=== PATIENT | female | born 1955 | race Caucasian/White ===

== ENCOUNTER 2019-02-03 06:44 | Day surgery (SDC) | payer MEDICARE, OTHER ==
[~2019-02-03 06:44] MED LIST: CEFAZOLIN 2 Gram 2 GM/50 ML BAG IVPB ONE; CELECOXIB 100 MG CAPSULE PO ONE; FAMOTIDINE 20MG TABLET PO ONE; METOCLOPRAMIDE 10 MG TABLET PO ONE; SCOPOLAMINE 1 PATCH TDSY TD ONE; VANCOMYCIN 1GM/200ML PREMIX 1 GM/200 ML PIGGYBACK IVPB ONE
[2019-02-03] MEDS ORDERED: BUPIVACAINE LIPOSOME 266MG/20ML VIAL IV ONE (06:45)
[2019-02-03] MEDS ORDERED: VANCOMYCIN HCL 1 GM VIAL IVPB ONE (06:45)
[2019-02-03] MEDS ORDERED: 0.9 % SODIUM CHLORIDE 100ML 100 ML IV ONE (06:45)
[2019-02-03] MEDS ORDERED: TRANEXAMIC ACID 1,000 MG/10 ML ML IV ONE ×2 (06:45)
[2019-02-03] MEDS ORDERED: LIDOCAINE 2% MDV (20MG/ML) 20ML VIAL IV ONE (06:45)
[2019-02-03] MEDS ORDERED: DEXAMETHASONE 4 MG/ML 1ML VIAL IVP ONE (06:45)
[2019-02-03] MEDS ORDERED: ROPIVACAINE HCL (NAROPIN) /PF 5MG/ML 20ML VIAL IV ONE (06:45)
[2019-02-03] MEDS ORDERED: GLYCOPYRROLATE 0.2 MG/ML ML IV ONE (06:45)
[2019-02-03] MEDS ORDERED: MIDAZOLAM HCL 2MG/2ML VIAL IV ONE (06:45)
[2019-02-03] MEDS ORDERED: PROPOFOL 10 MG/ML VIAL IV ONE (06:45)
[2019-02-03] MEDS ORDERED: RINGERS SOLUTION,LACTATED 1,000 ML IV ONE ×2 (07:30→09:30)
[2019-02-03 07:51] LABS: ABO GROUP A; ANTIBODY SCREEN NEGATIVE (NEGATIVE); RH TYPE POSITIVE
[2019-02-03] MEDS ORDERED: BUPIVACAINE 0.5% W/EPI MPF 30 ML VIAL SQ ONE (10:08)
[2019-02-03] MEDS ORDERED: ACETAMINOPHEN W/ CODEINE 300MG/60MG TABLET PO PRN ×2 (11:12)
[2019-02-03] MEDS ORDERED: BISACODYL 10 MG SUPP RC PRN (11:12)
[2019-02-03] MEDS ORDERED: MAGNESIUM HYDROXIDE 30 ML UDC PO PRN (11:12)
[2019-02-03] MEDS ORDERED: ONDANSETRON HCL IV 4 MG/2 ML VIAL IVP PRN (11:12)
[2019-02-03] MEDS ORDERED: AL HYDROX/MAG HYDROX 30ML UD PO PRN (11:12)
[2019-02-03] MEDS ORDERED: TRAMADOL HCL 50 MG TABLET PO PRN (11:12)
[2019-02-03] MEDS ORDERED: DIPHENHYDRAMINE HCL 25 MG CAPSULE PO PRN (11:12)
[2019-02-03] MEDS ORDERED: NALOXONE 0.4 MG/1 ML VIAL IVP PRN (11:12)
[2019-02-03] MEDS ORDERED: KETOROLAC 30 MG/ML VIAL IVP PRN ×2 (11:12)
[2019-02-03] MEDS ORDERED: ZOLPIDEM TARTRATE 5 MG TABLET PO PRN (11:12)
[2019-02-03] MEDS ORDERED: ACETAMINOPHEN 325 MG TAB PO PRN (11:12)
[2019-02-03] MEDS ORDERED: HYDROMORPHONE HCL 2 MG/ML VIAL IM PRN (11:12)
[2019-02-03] MEDS ORDERED: TRAZODONE 50 MG TABLET PO PRN ×2 (12:28)
[2019-02-03] MEDS: HYDROCODONE/APAP 10/325 TABLET PO PRN ×3 (12:48→22:03)
--- NOTE | 2019-02-03 14:36 | Rehab Evaluation ---
Patient Information - Patient Information Diagnosis: L knee OA Ordered Treatment: PT Evaluate and Treat Status: Initial Evaluation Surgery: Yes (L knee TKA) Date of Surgery: 02/03/19 Past Medical/Surgical Hx: PAST MEDICAL/SURGICAL HISTORY Past Surgical History RTKA 2010 LUMBAR SX FUSION -2018 C SECTION BILAT SHOULDER SX'S KNEE SCOPES C SCOPES ORIF RIGHT ANKLE PMH - Respiratory Hx Respiratory Disorders Yes Hx Bronchitis Yes: NOTHING RECENT PMH - Cardiovascular Hx Cardiovascular Disorders Yes Hx Heart Murmur Yes: FUNCTIONAL NO ISSUES Exercise Tolerance Fair Comment: D/T BACK AND KNEE PMH - Neuro Hx Neurological Disorders Yes Hx Dizziness Yes: VERTIGO IN THE PAST PMH - GI Hx Gastrointestinal Disorders Yes Hx Gastroesophageal Reflux Yes: RARELY Comment: CHRONIC CONSTIPATION PMH - Hx Genitourinary Disorders Yes Hx Urinary Tract Infection Yes: HX OF PMH - Endocrine Hx Endocrine Disorders No PMH - Musculoskeletal Hx Musculoskeletal Disorders Yes Hx Arthritis Yes: LEFT KNEE, HANDS Hx Osteoporosis Yes: OSTEOPENIA PMH - Psych Hx Psychiatric Problems Yes Hx Anxiety Yes: CONTROLLED WITH MEDS PMH - Hematology/Oncology Hx Hematology/Oncology Yes Disorders Hx Cancer Yes: 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 The paient will not be using the second story immediately. The bathroom is equipped with a walk in shower with a seat, standard toilet. No grab bars are present in the bathroom. The patient has a front wheeled walker and a standard cane.) Precautions: [place], Fall, Other (WBAT on the L LE.) - Time With Patient Total Time Spent With Patient (Min): 30 Treatment Procedures: Detail (Initial Evaluation, gait training) Subjective Information - Subjective Information Per Patient (The patient had minimal complaints of knee pain but did complain of bladder pressure.) Objective Data - Mental Status Patient Orientation: Oriented x3 - Visual Perception Appears within normal limits for therapeutic activities - ROM Not within normal limits (The paient's L knee AROM was limited as to be expected s/p surgery. All other LE AROM was WFL.) - Strength/Tone Not within normal limits (The patient's R LE strength was not tested s/p surgery however was WFL ie: patient was able to complete a SLR. The patient's L LE strength was WFL.) - Bed Mobility Independent (The patient was independent with supine to and from sit transfer and scooting up in bed.) - Transfers Independent (The patient was independent with sit to amd from stand transfer.) - Balance Balance Sitting: Good Balance Standing: Good - Gait Detail (The patient ambulated with a front wheeled walker 7 feet x 1 and 65 feet x 1 WBAT on the L LE with CG/supervision for safety.) Therapy Assessment - Therapy Assessment Detail (The patient was independent with bed mobility and transfers and required supervision for safety only with ambulation. Feel the patient will progress well with mobility.) Problem List - Problem List Physical Therapy Problem List: Detail (Decreased L LE strength and L knee AROM) Goals - Goals Physical Therapy Goals: 1) The paient will be indpendent with TKA HEP. 2) The patient will ambulate on stairs with supervison for safety using proper technique. 3) The patient will ambulate with appropriate assistive device WBAT on the L LE household distances independently. Prognosis - Prognosis Good Plan - Plan Physical Therapy Plan: PT 1-2 sessions for gait training on levels and stairs and instruction in HEP.
[2019-02-03] MEDS: POTASSIUM CHLORIDE/D5-0.9%NACL 20 MEQ/1,000 ML BAG IV SCH ×2 (15:06→22:11)
[2019-02-03] MEDS: CEFAZOLIN 2 Gram 2 GM/50 ML BAG IVPB SCH (17:11)
[2019-02-03] MEDS: DOCUSATE SODIUM 100 MG CAPSULE PO SCH (21:10)
[2019-02-04] MEDS: CEFAZOLIN 2 Gram 2 GM/50 ML BAG IVPB SCH ×2 (00:04→10:06)
[2019-02-04] MEDS: HYDROCODONE/APAP 10/325 TABLET PO PRN ×2 (05:01→10:05)
[2019-02-04] MEDS: POTASSIUM CHLORIDE/D5-0.9%NACL 20 MEQ/1,000 ML BAG IV SCH ×2 (05:08→11:14)
[2019-02-04 06:30] LABS: HEMATOCRIT 33.3 % (35.0-47.0); HEMOGLOBIN 10.5 gm/dl (11.6-16.0)
[2019-02-04 06:43] LABS: BLOOD UREA NITROGEN 10 mg/dL (8-23); CREATININE 0.7 mg/dL (0.5-0.9); EST GLOMERULAR FILTRATION RATE > 60 mL/min; GLUCOSE,RANDOM 120 mg/dL (74-109)
--- NOTE | 2019-02-04 07:50 | Operative Note ---
DATE OF SURGERY: 02/03/2019 PREOPERATIVE DIAGNOSIS: End-stage arthrosis of the left knee. POSTOPERATIVE DIAGNOSIS: End-stage arthrosis of the left knee. OPERATION: Cemented left total knee arthroplasty using [employer] II components with a size 4 Oxinium femur, a size 3 stemmed tibia baseplate, a 9 mm lipped highly crosslinked tibial insert, and a 35 mm all plastic patella. STAFF SURGEON: Josafat Marina MD ANESTHESIA: Spinal. PREPARATION: Chloraprep. INDIVIDUAL CONSIDERATIONS: None. PROCEDURE: The patient was taken to the operating room, placed supine on the operating room table. She had a successful induction of a spinal anesthetic. The left lower extremity was prepped and draped in the usual fashion. The patient had a midline approach to the knee. The limb was elevated and tourniquet was inflated to 250 mmHg. Sharp dissection carried down through skin and subcutaneous tissue. Small veins were coagulated with a Bovie. A medial arthrotomy was performed. The patella was everted and the knee was flexed. The patient had exposed bone primarily in the lateral compartments and also with some in the notch. Fat pad was resected, ACL was sacrificed, and provisional anterior meniscectomies were performed. The capsule was released from the medial proximal tibia. The initial femoral pilot control operator hole was then made freehand. The intramedullary femoral cutting jig was placed. It was cut in 7.0 degrees of valgus and adjusted for rotation for a 10 mm resection. The initial transverse cut was then made. The skin guide was placed in the anterior and posterior pilot control operator holes. It was found that a size 4 would be appropriate. The anterior and posterior cuts followed by chamfer cuts were made. Osteophytes removed, and a size 4 trial was placed and found to fit well. The tibia was brought forward, and the remainder of the meniscal remnants removed with a Bovie. The extraarticular tibial cutting jig was placed. It was cut in neutral with a 3-degree AP slope. Care was taken to adjust for rotation and flexion using the extraarticular alignment guide and bony landmarks. It was set for a 9 mm resection keyed off the high medial side and secured with pins. When cutting the tibia, care was taken to preserve the PCL insertion on the tibia. Osteophytes were removed, and a size 3 trial was placed and found to fit well. It was secured with pins. With a 9 mm trial and femoral trial, there was excellent motion and stability, ligamentous balance, and rotation alignment, patellofemoral tracking even at this point were normal. The femoral pilot control operator holes were impacted and the tri-flange tibial stamp was impacted, and these trial components were removed. The patient had a relatively thick patella and roughly 9 mm of bone was removed freehand. I was able to fit a 32 patella, and the 3 pilot control operator holes were drilled. The tourniquet was let down briefly to get bleeders posteriorly and then placed back up again. The knee was then copiously irrigated out with pulsatile Betadine and saline to remove any visual or palpable debris. Bony surfaces were then dried. A size 3 stemmed tibia baseplate was cemented into place followed by impaction of the 9 mm lipped highly crosslinked tibial insert followed by cementing in the size 4 Oxinium femur followed by cementing in the 32 mm patella. The implant surfaces were compressed, excess cement was removed. After the cement had set, there was excellent motion and stability, ligamentous balance, rotation alignment, and patellofemoral tracking were normal. No lateral release was required. After irrigation, tourniquet was let down. Hemostasis was obtained with a Bovie. The periosteum and subcu and skin were infiltrated with 30 mL of 0.5% Marcaine with epinephrine. The capsule was then closed with a running #2 quill, subcu was closed in layers with running 0 quill, skin was closed with kemar. Then 1 g of tranexamic acid was mixed with 30 mL of saline and injected into the knee through a sterile 18-gauge needle, and a sterile bulky compressive dressing was applied. The patient tolerated the procedure well. Needle and sponge counts were correct. Estimated blood loss was minimal, and she was taken back to recovery in good condition. There were no complications. RIVERA
--- NOTE | 2019-02-04 09:58 | Rehab Evaluation ---
Patient Information - Patient Information Diagnosis: L knee OA Ordered Treatment: OT Evaluate and Treat Status: Initial Evaluation Surgery: Yes (L knee TKA) Date of Surgery: 02/03/19 Past Medical/Surgical Hx: PAST MEDICAL/SURGICAL HISTORY Past Surgical History RTKA 2010 LUMBAR SX FUSION -2018 C SECTION BILAT SHOULDER SX'S KNEE SCOPES C SCOPES ORIF RIGHT ANKLE PMH - Respiratory Hx Respiratory Disorders Yes Hx Bronchitis Yes: NOTHING RECENT PMH - Cardiovascular Hx Cardiovascular Disorders Yes Hx Heart Murmur Yes: FUNCTIONAL NO ISSUES Exercise Tolerance Fair Comment: D/T BACK AND KNEE PMH - Neuro Hx Neurological Disorders Yes Hx Dizziness Yes: VERTIGO IN THE PAST PMH - GI Hx Gastrointestinal Disorders Yes Hx Gastroesophageal Reflux Yes: RARELY Comment: CHRONIC CONSTIPATION PMH - Hx Genitourinary Disorders Yes Hx Urinary Tract Infection Yes: HX OF PMH - Endocrine Hx Endocrine Disorders No PMH - Musculoskeletal Hx Musculoskeletal Disorders Yes Hx Arthritis Yes: LEFT KNEE, HANDS Hx Osteoporosis Yes: OSTEOPENIA PMH - Psych Hx Psychiatric Problems Yes Hx Anxiety Yes: CONTROLLED WITH MEDS PMH - Hematology/Oncology Hx Hematology/Oncology Yes Disorders Hx Cancer Yes: NEURO ENDOCRINE CA 2017 DX'D STAGE 4 VERY STABLE ON MONTHLY INJECTION Hx Chemotherapy No Hx Radiation Therapy No Premorbid Status: Detail (Prior to surgery the patient was independent with all mobility, meal prep, laundry and light home mgmt. 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 Pt reports her sisters will be staying with her for a short time and her S.O. is available to assist as needed.) Social History: Detail (The patient lives alone in 2 story house with 1 step and no handrails at the entrance. Pt's bedroom is on the second floor and she has a bathroom on both levels. The bathroom is equipped with a walk in shower with a seat and a standard toilet with a riser seat that has tobi handles. No grab bars are present in the bathroom. The patient has a front wheeled walker and a standard cane.) Precautions: [place], Fall, Other (WBAT on the L LE.) - Time With Patient Total Time Spent With Patient (Min): 40 Treatment Procedures: Detail (OT eval low complexity) Subjective Information - Subjective Information Per Patient Objective Data - Pain Pain Present: Yes (1/10 at rest) - Mental Status Patient Orientation: Oriented x3 - Visual Perception Appears within normal limits for therapeutic activities - ROM Within normal limits (Tobi UE AROM WNL) - Strength/Tone Within normal limits (Tobi UE strength WNL) - Coordination Appears within normal limits for therapeutic activities - Bed Mobility Independent (Ind with supine to sit) - Transfers Independent (Ind with sit to stand from EOB, toilet and chair heights.) - Balance Balance Sitting: Good Balance Standing: Good - Sensation Intact - Gait Detail (Pt ambulating in room with 2 wheeled walker and SBA) - ADL's/IADL's Detail (Pt educated and able to demonstrate learning of modified LE dressing techniques including doffing slipper socks and briefs and donning underwear, pants, socks and slipper socks. Reviewed kitchen and shower safety and modifications, pt verbalizes understanding. Pt was able to Indly amb to bathroom and complete toileting, oral hygiene and washing face.) Therapy Assessment - Therapy Assessment Detail (Pt is Ind with modified LE dressing techniques.) Problem List - Problem List Physical Therapy Problem List: Detail (Decreased L LE strength and L knee AROM) Occupational Therapy Problem List: Detail (No current IP OT problems identified.) Goals - Goals Physical Therapy Goals: 1) The paient will be indpendent with TKA HEP. 2) The patient will ambulate on stairs with supervison for safety using proper technique. 3) The patient will ambulate with appropriate assistive device WBAT on the L LE household distances independently. Occupational Therapy Goals: No current IP OT goals identified. Prognosis - Prognosis Good Plan - Plan Physical Therapy Plan: PT 1-2 sessions for gait training on levels and stairs and instruction in HEP. Occupational Therapy Plan: No further IP OT recommended. Thank you for this referral.
[2019-02-04] MEDS ORDERED: RIVAROXABAN 10 MG TABLET PO SCH (10:00)
[2019-02-04] MEDS ORDERED: FERROUS SULFATE 325 MG TAB PO SCH (10:00)
[2019-02-04] MEDS ORDERED: MULTIVITAMINS/MINERALS TABLET PO SCH (10:00)
[2019-02-04] MEDS ORDERED: CITALOPRAM 20 MG TABLET PO SCH (10:00)
[2019-02-04] MEDS: DOCUSATE SODIUM 100 MG CAPSULE PO SCH (10:03)
--- NOTE | 2019-02-04 11:16 | Physical Therapy Tx Note ---
Physical Therapy Tx Note - Treatment Note Tolerated: Good Total Time Spent With Patient: 20 Physical Therapy Tx Note: Detail (Patient was seated in chair upon MANUFACTURING HELPER arrival. Patient states no new complaints this morning. Patient states slept good last night. Patient performed the following seated exercises in chair x10 reps each: ankle pumps, glut squeezes, quad sets, SLR, hamstring sets, and heel slides. Patient transferred sit to and from stand CGA x1. Patient ambulated 326 feet with wheeled walker CGA x1. Patient descended and ascended 11 steps with using railing and walker CGA x1. Patient transferred sit to and from stand CGA x1. Patient ambulated 13 feet x2 with wheeled walker CGA x1. Patient tolerated treatment well. Patient displays good understanding of HEP and stair climbing. Patient reports feeling nauseated after treatment. Patient was left seated in chair with call light within reach. Patient discharged from inpatient PT at this time as all goals are met.) Physical Therapy Problem List: Detail (Decreased L LE strength and L knee AROM) Physical Therapy Goals: 1) The paient will be indpendent with TKA HEP. Met. 2) The patient will ambulate on stairs with supervison for safety using proper technique. Met. 3) The patient will ambulate with appropriate assistive device WBAT on the L LE household distances independently. Met Prognosis: Good Physical Therapy Plan: Patient discharged from inpatient PT at this time as all goals are met.
== END 2019-02-04 12:55 | disposition home health service (06) ==
LOC: SUR 06:44 → MEDSURG 11:33 → SUR 02-04 12:55
PROVIDERS: ATTEND Orthopaedic Surgery
DX: M17.12 Unilateral primary osteoarthritis, left knee (principal); C7A.8 Other malignant neuroendocrine tumors; R01.1 Cardiac murmur, unspecified
CPT/HCPCS: 76942; 80048; 85014; 85018; 86850; 86900; 86901; 97530; C1776; J1885; J3370; J3480; J7120